=== PATIENT | male | born 1940 | race Caucasian/White ===

== ENCOUNTER 2018-07-18 10:10 | Emergency (ER) | payer MEDICARE ==
--- NOTE | 2018-07-18 11:02 | Emergency Department Record ---
History of Present Illness - General Chief complaint: Pain Stated complaint: FALL/RIB PAIN Time Seen by Provider: 07/18/18 10:44 Source: Patient, Family Mode of Arrival: Ambulatory Limitations: No limitations - History of Present Illness Initial comments: The patient is here due to a trip and fall 2 days ago injuring her R lower ribs and back. The patient denies any head injury or ORTEGA since. He thinks he may have hit his R lower ribs and the foot of his bed. Since he is having minor rib pain but is having very significant mid thoracic back pain with any movement. The patient denies any anterior chest pain, new SOB, or any AP or vomiting. The patient does have an extensive medical history and is on multiple medicines and also Warfarin. MD Complaint: Other Onset/Timin -: Days(s) Location: Other History of Same: No Radiation: None Severity scale (1-10): 10 Quality: Sharp Consistency: Constant Improves with: Immobilization Worsens with: Exertion Associated Symptoms: Denies other symptoms - Related Data Home Medications Medication Instructions Recorded Confirmed Last Taken Acetaminophen with Codeine 1 each PO BID 07/18/18 07/18/18 Unknown [Tylenol with Codeine #3 Tablet] Alprazolam 0.25 mg PO ASDIR 07/18/18 07/18/18 Unknown Aspirin [Aspirin EC] 81 mg PO DAILY 07/18/18 07/18/18 Unknown Citalopram Hydrobromide 10 mg PO QHS 07/18/18 07/18/18 Unknown [Citalopram HBr] Clonazepam 1 mg PO QHS 07/18/18 07/18/18 Unknown Donepezil HCl 10 mg PO DAILY 07/18/18 07/18/18 Unknown Hydralazine HCl 75 mg PO TID 07/18/18 07/18/18 Unknown Insulin Glargine,Hum.rec.anlog 12 unit SQ QHS 07/18/18 07/18/18 Unknown [Lantus] Isosorbide Dinitrate 20 mg PO BID 07/18/18 07/18/18 Unknown Memantine HCl 10 mg PO DAILY 07/18/18 07/18/18 Unknown Metoprolol Succinate [Toprol Xl] 200 mg PO DAILY 07/18/18 07/18/18 Unknown Rosuvastatin Calcium [Crestor] 5 mg PO DAILY 07/18/18 07/18/18 Unknown Tamsulosin HCl [Flomax] 0.4 mg PO DAILY 07/18/18 07/18/18 Unknown Torsemide 20 mg PO DAILY 07/18/18 07/18/18 Unknown Warfarin Sodium [Coumadin] 1.25 mg PO DAILY 07/18/18 07/18/18 Unknown Allergies Allergy/AdvReac Type Severity Reaction Status Date / Time lisinopril Allergy SWELLING Verified 07/18/18 10:38 (GENERAL) lorazepam [From Ativan] Allergy BEHAVIORAL Verified 07/18/18 10:38 CHANGES rivaroxaban [From Xarelto] Allergy PT UNSURE Verified 07/18/18 10:38 OF REACTION Travel Screening - Travel/Exposure Within Last 30 Days Have you traveled within the last 30 days?: No Review of Systems Constitutional: Denies: Chills, Fever Eyes: Denies: Eye discharge ENT: Denies: Congestion Respiratory: Denies: Cough, Dyspnea Cardiovascular: Denies: Arrhythmia, Chest pain, Dyspnea on exertion Endocrine: Reports: Fatigue Gastrointestinal: Denies: Nausea Genitourinary: Denies: Dysuria Musculoskeletal: Reports: Back pain. Denies: Arthralgia Skin: Reports: Bruising Past Medical History - SOCIAL HISTORY Smoking Status: Former smoker Alcohol Use: None Drug Use: None - RESPIRATORY Hx Respiratory Disorders: Yes Comment:: low oxygen/ANTHONY - CARDIOVASCULAR Hx Cardio Disorders: Yes Hx CHF: Yes Hx Deep Vein Thrombosis: Yes Hx Palpitations: Yes (afib) - NEURO Hx Neuro Disorders: Yes Hx CVA: Yes Hx TIA: Yes - Hx Genitourinary Disorders: Yes Hx Renal Disease: Yes - ENDOCRINE Hx Endocrine Disorders: Yes Hx Diabetes: Yes - MUSCULOSKELETAL Hx Musculoskeletal Disorders: Yes - PSYCH Hx Psych Problems: Yes Hx Anxiety: Yes - HEMATOLOGY/ONCOLOGY Hx Hematology/Oncology Disorders: No Family Medical History Any Significant Family History?: No Physical Exam - General General Appearance: Alert, Oriented x3, Cooperative, No acute distress - Head Head exam: Atraumatic, Normocephalic, Normal inspection (There are no signs of any head trauma.) - Eye Eye exam: Normal appearance, PERRL, EOMI - Neck Neck exam: Normal inspection. negative: Meningismus, Tenderness (There is no Cspine tenderness.) - Respiratory Respiratory exam: Normal lung sounds bilaterally, Chest wall tenderness (There is bruising and tenderness to the R lower ribs.). negative: Accessory muscle use, Respiratory distress - Cardiovascular Cardiovascular Exam: Regular rate, Normal rhythm, Normal heart sounds. negative : Diastolic murmur, Systolic murmur - GI/Abdominal GI/Abdominal exam: Soft, Normal bowel sounds. negative: Tenderness - Extremities Extremities exam: Normal inspection, Full ROM, Normal capillary refill. negative: Tenderness - Back Back exam: Reports: Normal inspection, Full ROM, Vertebral tenderness (Over the mid thoracic area of the spine but there is no bruising or swelling appreciated. ). Denies: Muscle spasm, Rash noted, Tenderness Image of Body Front/Back: 1 - Area of bruising and tenderness. 2 - Area of tenderness but no bruising. - Neurological Neurological exam: Alert, Normal gait, Oriented X3. negative: Abnormal gait, Altered, Motor sensory deficit Course Vital Signs 07/18/18 10:27 Temperature 97.9 F Pulse Rate 81 Respiratory 20 Rate Blood Pressure 104/61 Pulse Ox 93 L - Reevaluation(s) Reevaluation #1: The patient is doing a lot better at this time. His pain is much improved and he is resting comfortably. He denies any requests for pain medicines at this time. 07/18/18 12:07 Reevaluation #2: The patient is doing better but still quite painful. I did discuss the xray results with the patient and family and did recommend a hospital admission due to the CT findings. Due to the patient's extensive medical hx I do believe it is in his best interest to be admitted [place] [facility] and the patient did agree. We will then make contact with [facility] to request a transfer. 07/18/18 12:36 Reevaluation #3: I did discuss the case with Dr. Arthur at [facility] and he does accept the patient to the hospital for a direct admission. 07/18/18 12:46 Medical Decision Making - Data Complexity MDM Data: Labs Ordered and/or Reviewed, X-Ray Ordered and/or Reviewed - Lab Data Result diagrams: 07/18/18 11:20 07/18/18 11:20 - Radiology Data Radiology results: Report reviewed (Chest CT: R 7-9 rib fx's with tiny PTX. Small R effusion. Old R 5-6 rib fx's. ) Disposition Disposition: Transfer Clinical Impression: Ribs, multiple fractures Qualifiers: Encounter type: initial encounter Fracture type: closed Laterality: right Qualified Code(s): S22.41XA - Multiple fractures of ribs, right side, initial encounter for closed fracture Disposition: Acute Care Hospital Transfer [place] [facility] Reason For Transfer: Trauma Accepting Physician: Jerson Time Discussed w/Accepting Physician: 12:47 Condition: (2) Stable Forms: Patient Portal Access Time of Disposition: 12:47 Quality - Quality Measures Quality Measures: N/A - Blood Pressure Screening View Details: Yes Does Patient Have Any of the Following: No Blood Pressure Classification: Normal BP Reading Systolic Measurement: 104 Diastolic Measurement: 61 Screening for High Blood Pressure: < Normal BP, F/U Not Required > [G8783]
[2018-07-18 11:25] LABS: BASO % 0.3 % (0-6); EOS % 1.4 % (0-6); GRAN % 79.1 % (47-80); HEMATOCRIT 42.3 % (42.0-52.0); HEMOGLOBIN 13.4 gm/dl (14.0-18.0); LYMPH % 10.2 % (16-45); MEAN CELL VOLUME 93.4 fl (81-97); MEAN CORPUSCULAR HGB CONC 31.7 g/dl (32-36); MEAN PLATELET VOLUME 9.6 fl (7.4-10.4); PLATELET COUNT 208 K/uL (130-400); RED BLOOD COUNT 4.53 M/uL (4.40-5.70); RED CELL DISTRIBUTION WIDTH 13.8 % (11.5-14.5); WHITE BLOOD COUNT W/O DIFF 8.9 K/uL (4.2-12.2)
[2018-07-18] MEDS ORDERED: ONDANSETRON HCL IV 4 MG/2 ML VIAL IVP ONE (11:25)
[2018-07-18] MEDS ORDERED: MORPHINE SULFATE 10 MG/ML VIAL IVP ONE (11:25)
[2018-07-18 11:26] LABS: MEAN CORPUSCULAR HEMOGLOBIN 29.5 pg (27-33)
[2018-07-18 11:35] LABS: BILIRUBIN,TOTAL 0.5 mg/dL (0.2-1.0); CREATININE 2.7 mg/dL (0.7-1.2); TOTAL PROTEIN 6.8 g/dL (6.6-8.7)
[2018-07-18 11:36] LABS: INR 1.6; PARTIAL THROMBOPLASTIN TIME 32.9 SECONDS (24.5-39.1); PROTHROMBIN TIME (PATIENT) 15.7 SECONDS (9.5-12.1)
[2018-07-18 11:40] LABS: ALB/GLOB RATIO 1.1 (1.1-1.8); ALBUMIN 3.5 g/dL (4.0-5.0)
--- NOTE | 2018-07-19 09:45 | CT SCAN REPORT ---
EXAM: NONCONTRAST CT OF THE CHEST HISTORY: RECENT FALL, LOWER POSTERIOR RIGHT RIB PAIN. TECHNIQUE: Noncontrast CT of the chest was obtained. Comparison: None. FINDINGS: The central airways appear patent. Left sided implanted cardiac device is noted. Trace pericardial fluid. Coronary artery calcifications and/or stents. The thoracic aorta is calcified without aneurysmal dilatation. Hyperdensity along the posterior wall of the left ventricle, likely calcification. No significantly enlarged mediastinal, hilar or axillary lymph nodes. Very minimal right sided pneumothorax. Small right pleural effusion. No significant focal pulmonary consolidation. Right lower lobe atelectasis. Scattered bilateral noncalcified pulmonary nodules, the largest is identified in the lingula measuring up to 6 mm. No acute upper abdominal findings. Both kidneys appear mildly atrophic. Diverticula at the visualized colon are noted without appreciable inflammation. A thoracic stimulator device is noted. Likely subacute fractures of the posterior lateral right fifth and sixth ribs. Acute fracture involving the posterolateral and lateral right seventh rib. Acute fracture of the lateral right eighth and ninth ribs. No additional acute osseous findings. IMPRESSION: 1. ACUTE MINIMALLY DISPLACED FRACTURES OF THE RIGHT 7TH - 9TH RIBS, POSSIBLY SUBACUTE FRACTURES OF THE RIGHT FIFTH AND SIXTH RIBS. 2. TRACE RIGHT SIDED PNEUMOTHORAX. SMALL RIGHT PLEURAL EFFUSION. 3. SCATTERED BILATERAL NONCALCIFIED PULMONARY NODULES, LARGEST ON THE LEFT MEASURING 6 MM[address] RECOMMEND FOLLOW-UP CT IN THREE TO SIX MONTHS TO ASSESS FOR STABILITY. JOB NUMBER: [id number] MTDD
== END 2018-07-18 15:30 | disposition short-term general hospital (02) ==
LOC: ER 10:10
DX: S22.41XA Multiple fractures of ribs, right side, initial encounter for closed fracture (principal); R91.8 Other nonspecific abnormal finding of lung field; J90 Pleural effusion, not elsewhere classified; M54.6 Pain in thoracic spine; E11.9 Type 2 diabetes mellitus without complications; I48.91 Unspecified atrial fibrillation; I50.9 Heart failure, unspecified; Z79.4 Long term (current) use of insulin; Z79.01 Long term (current) use of anticoagulants; W01.0XXA Fall on same level from slipping, tripping and stumbling without subsequent striking against object, initial encounter; Z87.891 Personal history of nicotine dependence
CPT/HCPCS: 71250; 80053; 85025; 85610; 85730; 96374; 96375; 99285; J2270; J2405

== ENCOUNTER 2019-03-21 17:05 | Emergency (ER) | payer MEDICARE ==
[2019-03-21 17:57] LABS: ABSOLUTE NEUTROPHIL COUNT 7.82; HEMATOCRIT 43.8 % (42.0-52.0); HEMOGLOBIN 14.1 gm/dl (14.0-18.0); MEAN CELL VOLUME 93.4 fl (81-97); MEAN CORPUSCULAR HEMOGLOBIN 30.1 pg (27-33); MEAN CORPUSCULAR HGB CONC 32.2 g/dl (32-36); MEAN PLATELET VOLUME 9.1 fl (7.4-10.4); PLATELET COUNT 200 K/uL (130-400); RED BLOOD COUNT 4.69 M/uL (4.40-5.70); RED CELL DISTRIBUTION WIDTH 12.9 % (11.5-14.5); WHITE BLOOD COUNT W/O DIFF 8.9 K/uL (4.2-12.2)
[2019-03-21 18:02] LABS: URINE APPEARANCE SL CLOUDY; URINE BILIRUBIN NEGATIVE (NEGATIVE); URINE BLOOD LARGE (NEGATIVE); URINE COLOR RED; URINE GLUCOSE (UA) NEGATIVE (NEGATIVE); URINE KETONE NEGATIVE (NEGATIVE); URINE LEUKOCYTE ESTERASE NEGATIVE (NEGATIVE); URINE NITRITE NEGATIVE (NEGATIVE); URINE UROBILINOGEN 0.2 E.U./dL (0.20 - 1.00)
[2019-03-21 18:03] LABS: URINE EPITHELIAL CELLS NONE SEEN (FEW); URINE WBC NONE SEEN (0-2/hpf)
[2019-03-21 18:06] LABS: PLATELET ESTIMATE NORMAL (NORMAL)
[2019-03-21 18:10] LABS: CREATININE 3.2 mg/dL (0.7-1.2); INR 2.2; PARTIAL THROMBOPLASTIN TIME 36.3 SECONDS (24.5-39.1); PROTHROMBIN TIME (PATIENT) 22.1 SECONDS (9.5-12.1)
--- NOTE | 2019-03-21 18:13 | Emergency Department Record ---
History of Present Illness - General Chief complaint: Male Urogenital Problem Stated complaint: BLOOD IN URINE,CLOTS Time Seen by Provider: 03/21/19 17:19 Source: Patient Mode of Arrival: Ambulatory Limitations: No limitations - History of Present Illness Initial comments: 78 yo male presents to ED for evaluation of hematuria symptoms for the past several days. Patient's reports increased blood today with associated intermittent urinary retention symptoms. SO denies recent fevers, chills, or illness. Patient's SO denies any recent urinary procedures or injury as well. Patient does take Coumadin at daily. Patient does have a history of dementia currently at his baseline per family members. MD Complaint: Other (Hematuria) Onset/Timin -: Days(s) Radiation: Back Severity: Moderate Severity scale (1-10): 4 Quality: Aching Consistency: Constant, Intermittent Worsens with: None - Related Data Home Medications Medication Instructions Recorded Confirmed Last Taken Calcitriol 0.5 mcg PO QAM 03/21/19 03/21/19 1 Day Ago ~03/20/19 Cholecalciferol (Vitamin D3) 2,000 unit PO DAILY 03/21/19 03/21/19 1 Day Ago [Vitamin D3] ~03/20/19 Melatonin 10 mg PO DAILY 03/21/19 03/21/19 1 Day Ago ~03/20/19 Multivitamin [Multiple Vitamins] 1 each PO DAILY 03/21/19 03/21/19 1 Day Ago ~03/20/19 Previous Rx's Medication Instructions Recorded Phenazopyridine HCl [Pyridium] 200 mg PO TID #6 tab 03/21/19 Allergies Allergy/AdvReac Type Severity Reaction Status Date / Time lisinopril Allergy SWELLING Verified 03/21/19 17:50 (GENERAL) lorazepam [From Ativan] Allergy BEHAVIORAL Verified 03/21/19 17:50 CHANGES rivaroxaban [From Xarelto] Allergy PT UNSURE Verified 03/21/19 17:50 OF REACTION Travel Screening - Travel/Exposure Within Last 30 Days Have you traveled within the last 30 days?: No - Travel/Exposure Within Last Year Have you traveled outside the [place] in the last year?: No - Additonal Travel Details Have you been exposed to anyone with a communicable illness?: No - Travel Symptoms Symptom Screening: None Review of Systems Constitutional: Denies: Chills, Fever, Malaise, Night sweats Eyes: Denies: Eye discharge, Eye pain ENT: Denies: Congestion, Ear pain, Epistaxis Respiratory: Denies: Cough, Dyspnea Cardiovascular: Denies: Chest pain, Dyspnea on exertion Endocrine: Denies: Fatigue, Heat or cold intolerance Gastrointestinal: Denies: Abdominal pain, Nausea, Vomiting Genitourinary: Reports: Hematuria, Retention. Denies: Dysuria, Frequency Musculoskeletal: Reports: Back pain. Denies: Arthralgia Skin: Denies: Bruising, Change in color Neurological: Denies: Abnormal gait, Confusion, Headache, Tingling, Tremors Psychiatric: Denies: Anxiety Hematological/Lymphatic: Reports: Easy bleeding, Easy bruising. Denies: Anemia, Blood Clots Past Medical History - SOCIAL HISTORY Smoking Status: Former smoker Alcohol Use: None Drug Use: None - RESPIRATORY Hx Respiratory Disorders: Yes Comment:: low oxygen/ANTHONY - CARDIOVASCULAR Hx Cardio Disorders: Yes Hx CHF: Yes Hx Deep Vein Thrombosis: Yes Hx Palpitations: Yes (afib) - NEURO Hx Neuro Disorders: Yes Hx CVA: Yes Hx TIA: Yes - Hx Genitourinary Disorders: Yes Hx Renal Disease: Yes (stage 3) - ENDOCRINE Hx Endocrine Disorders: Yes Hx Diabetes: Yes - MUSCULOSKELETAL Hx Musculoskeletal Disorders: Yes - PSYCH Hx Psych Problems: Yes Hx Anxiety: Yes - HEMATOLOGY/ONCOLOGY Hx Hematology/Oncology Disorders: No Family Medical History Any Significant Family History?: Yes Physical Exam - General General Appearance: Alert, Cooperative, Mild distress Limitations: Other (History of dementia) - Head Head exam: Atraumatic, Normocephalic, Normal inspection Head exam detail: negative: Abrasion, Contusion, Cedillo's sign, General tenderness, Hematoma, Laceration - Eye Eye exam: Normal appearance. negative: Conjunctival injection, Periorbital swelling, Periorbital tenderness, Scleral icterus - ENT Ear exam: negative: Auricular hematoma, Auricular trauma Nasal Exam: negative: Active bleeding, Discharge, Dried blood, Foreign body Mouth exam: negative: Drooling, Laceration, Muffled voice, Tongue elevation - Neck Neck exam: Normal inspection. negative: Meningismus, Tenderness - Respiratory Respiratory exam: Normal lung sounds bilaterally. negative: Respiratory distress, Rhonchi, Stridor, Wheezes - Cardiovascular Cardiovascular Exam: Regular rate, Normal rhythm, Normal heart sounds - GI/Abdominal GI/Abdominal exam: Soft. negative: Distended, Rebound, Rigid, Tenderness - Rectal Rectal exam: Deferred - exam: Circumcision - Extremities Extremities exam: Normal inspection. negative: Pedal edema, Tenderness - Back Back exam: Denies: CVA tenderness (R), CVA tenderness (L) - Neurological Neurological exam: Alert, Normal gait, Oriented X3 - Psychiatric Psychiatric exam: Normal affect, Normal mood - Skin Skin exam: Normal color. negative: Abrasion Type of lesion: negative: abrasion Course Vital Signs 03/21/19 17:42 Temperature 97.8 F Pulse Rate 80 Respiratory 20 Rate Blood Pressure 161/90 Pulse Ox 96 - Reevaluation(s) Reevaluation #1: 03/21/19 18:14 Laboratory studies were reviewed and appear grossly unremarkable for an acute process except for the following: INR 2.2 BUN 61/Creatinine 3.2 (baseline 43/2.7) UA: Grossly bloody Reevaluation #2: 03/21/19 18:29 Bladder scan was performed, retaining 364 mL at this time. Following discussion with the patient's and daughter, will place Perez catheter for urinary retention symptoms likely from clot. Reevaluation #3: 03/21/19 19:33 CT Abdomen and Pelvis: Negative for rental stone. High density material in the bladder, possible blood but non-specific. Sclerotic lesions in the pelvis, further evaluation is recommended with possible nuclear bone scan imaging. Patient and his SO/daughter were updated on all results. Perez catheter was placed by nursing staff without difficulty to relieve the patient's urinary retention symptoms. Referral placed for follow-up with Dr. Pitts. Copy of the CT imaging report was given to the patient's SO for evaluation of the sclerotic lesions in the pelvis. SO and his daughter verbalize understanding of all instructions and the plan of care as discussed. Patient appears stable for discharge at this time. Medical Decision Making - Lab Data Result diagrams: 03/21/19 17:47 03/21/19 17:47 Lab Results 03/21/19 03/21/19 Range/Units 17:47 17:47 WBC 8.9 (4.2-12.2) K/uL RBC 4.69 (4.40-5.70) M/uL Hgb 14.1 (14.0-18.0) gm/dl Hct 43.8 (42.0-52.0) % MCV 93.4 (81-97) fl MCH 30.1 (27-33) pg MCHC 32.2 (32-36) g/dl RDW 12.9 (11.5-14.5) % Plt Count 200 (130-400) K/uL MPV 9.1 (7.4-10.4) fl Neutrophils % 91.0 H (47-80) % Eosinophils % Not Reportable Basophils % Not Reportable Absolute Neutrophils 7.82 Lymphocytes 5.0 L (16-45) % Monocytes 3.0 (0-9) % Platelet Estimate Normal (NORMAL) RBC Morphology Normal Eosinophil Count 1.0 (0-6) % Urine Color Red H Urine Appearance Sl cloudy Urine pH 6.5 (5.0-8.0) Ur Specific Sayre 1.020 (1.002-1.030) Urine Protein 100 mg/dl H (NEGATIVE) Urine Glucose (UA) Negative (NEGATIVE) Urine Ketones Negative (NEGATIVE) Urine Blood Large H (NEGATIVE) Urine Nitrite Negative (NEGATIVE) Urine Bilirubin Negative (NEGATIVE) Urine Urobilinogen 0.2 (0.20 - 1.00) E.U./dL Ur Leukocyte Esterase Negative (NEGATIVE) Urine RBC Too numerous to cnt (NONE SEEN) Urine WBC None seen (0-2/hpf) Ur Epithelial Cells None seen (FEW) Disposition Disposition: Discharge Clinical Impression: Urinary retention, Lesion of pelvic bone Hematuria Qualifiers: Hematuria type: gross Qualified Code(s): R31.0 - Gross hematuria Disposition: Home, Self-Care Condition: (2) Stable Instructions: Urinary Retention in Men (ED) Additional Instructions: Return to ED if your symptoms worsen or if you have any concerns. Pyridium as directed. Follow-up with Dr. Pitts in 3-5 days as directed. Follow-up with your family doctor as scheduled for further evaluation of the sclerotic lesions seen in the pelvis on CT imaging. Prescriptions: Phenazopyridine HCl [Pyridium] 200 mg PO TID #6 tab Referrals: Gary Pitts M.D. [MEDICAL DOCTOR] - [facility] [Provider Group] Forms: Patient Portal Access Time of Disposition: 19:31 Quality - Quality Measures Quality Measures: N/A - Blood Pressure Screening Does Patient Have Any of the Following: Active Dx of HTN Blood Pressure Classification: Hypertensive Reading Systolic Measurement: 161 Diastolic Measurement: 90 Screening for High Blood Pressure: Patient Exclusion, Hx of HTN [G9744]
[2019-03-21] MEDS ORDERED: LIDOCAINE UROJECT 10 ML APPL MM ONE (18:39)
--- NOTE | 2019-03-21 19:17 | CT SCAN REPORT ---
EXAMINATION: CT Abdomen and Pelvis without Contrast EXAM DATE: 03/21/2019 6:52 PM TECHNIQUE: Spiral CT images were obtained from the lung bases to the ischial tuberosities without int ravenous contrast. Coronal and sagittal 2-D reconstructions were made from source images. INDICATION: hematuria, exlcude bladder clot/ureteral calculi COMPARISON: None. FINDINGS: Evaluation of solid organs is degraded due to lack of intravenous contrast. Abdomen: The kidneys appear normal, with no evidence of stones or hydronephrosis. The other visualized solid o rgans are grossly unremarkable on this noncontrast exam. No free fluid or free air. No bowel dilation . Nonacute rib fractures. Pelvis: No ureteric stones. A small amount of dependent high density material is seen in the bladder, possibl y blood, but nonspecific. Prostate is mildly enlarged. There is no free fluid or free air. No inflammatory change. Small sclerotic areas are seen in the pubic and ischial rami bilaterally. IMPRESSION: 1. Negative for renal stone. 2. High density material in the bladder, possible blood but nonspecific. 3. Sclerotic areas in the pelvis. Further evaluation with nonemergent nuclear medicine bone scan is r ecommended. NOTE: There is a follow-up recommendation in this report. Please see above. Dictated by: Brian Molina MD on 03/21/2019 7:08 PM. .
== END 2019-03-21 19:52 | disposition home or self-care (01) ==
LOC: ER 17:05
DX: R33.8 Other retention of urine (principal); R31.0 Gross hematuria; M99.85 Other biomechanical lesions of pelvic region; M54.5 Low back pain; F03.90 Unspecified dementia, unspecified severity, without behavioral disturbance, psychotic disturbance, mood disturbance, and anxiety; Z87.891 Personal history of nicotine dependence; I50.9 Heart failure, unspecified; E11.9 Type 2 diabetes mellitus without complications; Z79.4 Long term (current) use of insulin; I10 Essential (primary) hypertension; I48.91 Unspecified atrial fibrillation
CPT/HCPCS: 74176; 80048; 81001; 85027; 85610; 85730; 99284